=== PATIENT | female | born 1995 | race Caucasian/White ===

== ENCOUNTER 2017-07-20 11:30 | Emergency (ER) | payer BC ==
--- NOTE | 2017-07-20 15:26 | ED ---
Throat Pain/Nasal Congestion - HPI Summary HPI Summary: Pt here w/ Lt eyelid pain, redness and swelling x 3 days. At first thought she had a stye starting here however never developed a visible pustule as she has in the past. Eyelid has been getting more and more swollen so decided to come in today (does not have a PCP at this time). Denies feeling of abrasion along eyeball and no change in vision other than swelling of lid moving into her field of vision at times. No d/c, no photophobia and eye is without pain when she moves it. Denies fever, chills, nausea, vomiting, otalgia, throat/neck pain , difficulty breathing or swallowing. Tried ice once which numbed it temporarily but no other change. Does not wear contact lenses but does wear makeup (eye liner, mascara, etc). - History of Current Complaint Chief Complaint: EDEyeProblem Time Seen by Provider: 07/20/17 14:19 Hx Obtained From: Patient - Allergies/Home Medications Allergies/Adverse Reactions: Allergies Allergy/AdvReac Type Severity Reaction Status Date / Time No Known Allergies Allergy Verified 10/28/15 19:45 PMH/Surg Hx/FS Hx/Imm Hx Previously Healthy: Yes Endocrine/Hematology History: Denies: Hx Anticoagulant Therapy, Hx Diabetes, Hx Thyroid Disease, Autoimmune Disease Cardiovascular History: Denies: Hx Congestive Heart Failure, Hx Deep Vein Thrombosis, Hx Hypertension , Hx Myocardial Infarction, Hx Pacemaker/ICD Respiratory History: Denies: Hx Asthma, Hx Chronic Obstructive Pulmonary Disease (COPD), Hx Lung Cancer, Hx Pneumonia, Hx Pulmonary Embolism GI History: Denies: Hx Gall Bladder Disease, Hx Gastrointestinal Bleed, Hx Ulcer, Hx Urosepsis History: Denies: Hx Kidney Stones, Hx Renal Disease Sensory History: Reports: Hx Contacts or Glasses - INSTRUCTED TO WEAR GLASSES DAY OF SURGERY Denies: Hx Hearing Aid Opthamlomology History: Reports: Hx Contacts or Glasses - INSTRUCTED TO WEAR GLASSES DAY OF SURGERY Neurological History: Denies: Hx Dementia, Hx Migraine, Hx Seizures, Hx Transient Ischemic Attacks (TIA) Psychiatric History: Denies: Hx Anxiety, Hx Depression, Hx Schizophrenia, Hx Bipolar Disorder - Surgical History Surgery Procedure, Year, and Place: 02/2015 cyst removed from finger Hx Anesthesia Reactions: No Infectious Disease History: No Infectious Disease History: Denies: Hx Hepatitis, Hx Human Immunodeficiency Virus (HIV), History Other Infectious Disease, Traveled Outside the [place] in Last 30 Days - Family History Known Family History: Positive: None - Social History Occupation: Employed Full-time Lives: Dormitory/Roommates Alcohol Use: Rare Alcohol Amount: 1 DRINK Substance Use Type: Reports: Marijuana Substance Use Comment - Amount & Last Used: OCCAS- ADVISED NOT TO USE PRIOR TO SURGERY Hx Tobacco Use: No Smoking Status (MU): Never Smoked Tobacco Review of Systems Constitutional: Negative Positive: Erythema - lid only. Negative: Photophobia, Blurred Vision, Diplopia , Drainage ENT: Negative Cardiovascular: Negative Respiratory: Negative Gastrointestinal: Negative Positive: no symptoms reported Musculoskeletal: Negative Skin: Other - Lt eyelid swollen, red - no lesions Neurological: Negative Psychological: Normal All Other Systems Reviewed And Are Negative: Yes Physical Exam Triage Information Reviewed: Yes Vital Signs On Initial Exam: Initial Vitals Temp Pulse Resp BP Pulse Ox 98.8 F 78 16 129/65 99 07/20/17 11:35 07/20/17 11:35 07/20/17 11:35 07/20/17 11:35 07/20/17 11:35 Vital Signs Reviewed: Yes Appearance: Positive: Well-Appearing, No Pain Distress, Well-Nourished Skin: Positive: Warm - Lt superior palpbrae with mild edema and erythema compared to Rt - no lesions, no skin breakdown, no pustules of inner or external lid howevere there is an area of edema along the superior conjunctival surface on the undersurface of the superior palpebra which appears to be a congested lacrimal gland duct - no drainage, no pusutles; pt is wearing eyeliner and mascara, Skin Color Reflects Adequate Perfusion, Dry Head/Face: Positive: Normal Head/Face Inspection - no edema otherwise - NTTP Eyes: Positive: EOMI, PARKER, Conjunctiva Clear - no abrasion, no lesions no FB with light inspection of sclera/conjunctiva, Other: - as above. Negative: Discharge ENT: Positive: Normal ENT inspection, Hearing grossly normal, Pharynx normal, TMs normal. Negative: Nasal congestion, Nasal drainage, Trismus, Muffled voice Neck: Positive: Supple, Nontender, No Lymphadenopathy Respiratory/Lung Sounds: Positive: Clear to Auscultation, Breath Sounds Present. Negative: Stridor Cardiovascular: Positive: Normal, RRR Musculoskeletal: Positive: Normal, Strength/ROM Intact Neurological: Positive: Normal, Sensory/Motor Intact, Alert, Oriented to Person Place, Time, CN Intact II-III Psychiatric: Positive: Normal - Bhaskar Coma Scale Coma Scale Total: 15 Diagnostics - Vital Signs Vital Signs Temp Pulse Resp BP Pulse Ox 07/20/17 11:35 98.8 F 78 16 129/65 99 - Laboratory Lab Statement: Any lab studies that have been ordered have been reviewed, and results considered in the medical decision making process. EENT Course/Dx - Diagnoses Provider Diagnoses: Internal hordeolum of left eye Discharge - Discharge Plan Condition: Stable Disposition: HOME Prescriptions: Cephalexin CAP* [Keflex CAP*] 500 mg PO BID #20 cap Patient Education Materials: Stye (ED) Forms: *Work Release Referrals: No Primary Care Phys,NOPCP [Primary Care Provider] - Peyman Calvillo MD [Medical Doctor] - Additional Instructions: Warm compresses, placed off and on affected area for about 15 minutes at a time approximately four times per day. If, despite continued treatment with warm compresses and ibuprofen, the stye hardens into a chalazion and does not reduce in size within one to two weeks, follow up with an head cook for consideration of incision and curettage. If cellulitis does develop of the upper eyelid, oral antibiotics may be started. These have been sent to your pharmacy. If swelling is worse and you decide to start these, also please call head cook for follow-up appointment. *If you develop fever, chills, pain with eye movements, sensitivity to light, headache, neck pain, vomiting or chest pain/difficulty breathing return to ED
[2017-07-20] MEDS ORDERED: Ibuprofen TAB* 800 MG PO ONE (15:43)
[2017-07-21 15:22] VITALS: BP 000/00
== END 2017-07-20 15:45 | disposition home or self-care (01) ==
LOC: ED 11:30
DX: H00.026 Hordeolum internum left eye, unspecified eyelid (principal); H57.12 Ocular pain, left eye
CPT/HCPCS: 99281